=== PATIENT | female | born 1995 | race Caucasian/White ===

== ENCOUNTER 2017-03-10 08:33 | Emergency (ER) | payer OTHER ==
[2017-03-10 08:43] VITALS: BP 127/69
[2017-03-10 09:15] LABS: KETONES,URINE (UA) NEGATIVE (NEGATIVE); LEUKOCYTE ESTERASE, URINE TRACE (NEGATIVE); OCCULT BLOOD,URINE LARGE (NEGATIVE); PH,URINE 5.5 PH (5.0-7.5)
[2017-03-10 09:22] LABS: CLARITY,URINE CLOUDY (CLEAR)
[2017-03-10 09:23] LABS: BILIRUBIN,URINE NEGATIVE (NEGATIVE); ICTOTEST,URINE NEGATIVE
[2017-03-10 09:24] LABS: BACTERIA,URINE Moderate /HPF (None Seen); SQUAMOUS EPITHELIAL CELL,UR RARE Squamous (<= Few)
--- NOTE | 2017-03-10 09:44 | ED Physician Documentation ---
PD HPI FEMALE - Stated complaint Stated Complaint: FEMALE /FEVER - Chief complaint Chief Complaint: UTI - History obtained from History obtained from: Patient, Family - History of Present Illness Timing - onset: How many days ago (2) Timing - duration: Days (2) Timing - details: Gradual onset, Still present Associated symptoms: Dysuria, Urinary frequency Similar symptoms before: Diagnosis (UTI) Recently seen: Not recently seen - Additional information Additional information: 21-year-old female developed symptoms of urinary urgency and frequency 2 days ago she began to take some Azo for this and she has had increasing symptoms when he is aware soft. She has developed some chills this morning and last night. She has had some nausea. She has not had vomiting or back pain. Review of Systems Constitutional: reports: Chills, Myalgias. denies: Fever Eyes: denies: Decreased vision Ears: denies: Ear pain Nose: denies: Congestion Throat: denies: Sore throat Respiratory: denies: Cough GI: reports: Nausea. denies: Abdominal Pain, Vomiting : reports: Dysuria, Frequency PD PAST MEDICAL HISTORY - Past Medical History Past Medical History: No - Past Surgical History Past Surgical History: Yes - Present Medications Home Medications: Ambulatory Orders Medication Instructions Recorded Confirmed Sulfamethoxazole/Trimethoprim 1 each PO BID #6 tablet 03/10/17 [Sulfamethoxazole-Tmp Ds Tablet] traZODone [Desyrel] 50 mg ORAL QPM 03/10/17 03/10/17 - Allergies Allergies/Adverse Reactions: Allergies Allergy/AdvReac Type Severity Reaction Status Date / Time No Known Drug Allergies Allergy Verified 03/10/17 08:43 - Social History Does the pt smoke?: Yes Smoking Status: Current every day smoker Does the pt drink ETOH?: Yes Does the pt have substance abuse?: No - Immunizations Immunizations are current?: Yes PD ED PE NORMAL - Vitals Vital signs reviewed: Yes (normal ) - General General: No acute distress, Well developed/nourished - HEENT HEENT: Atraumatic, PERRL - Neck Neck: Supple, no meningeal sign - Respiratory Respiratory: No respiratory distress - Back Back: No CVA TTP, No spinal TTP - Derm Derm: Normal color, Warm and dry, No rash - Extremities Extremities: No deformity, No edema - Neuro Neuro: No motor deficit, No sensory deficit Eye Opening: Spontaneous Motor: Obeys Commands Verbal: Oriented GCS Score: 15 - Psych Psych: Normal mood, Normal affect Results - Vitals Vitals: Vital Signs - 24 hr 03/10/17 08:39 Temperature 36.7 C Heart Rate 88 Respiratory 18 Rate Blood Pressure 127/69 O2 Saturation 100 Oxygen O2 Source Room air - Labs Labs: Laboratory Tests 03/10/17 09:05 Urine Color ORANGE Urine Clarity CLOUDY Urine pH 5.5 Ur Specific [place] 1.015 Urine Protein Urine Glucose (UA) Urine Ketones NEGATIVE Urine Occult Blood LARGE H Urine Nitrite Urine Bilirubin NEGATIVE Urine Urobilinogen Ur Leukocyte Esterase TRACE H Urine RBC 6-10 H Urine WBC >25 H Ur Squamous Epith Cells RARE Squamous Urine Bacteria Moderate H Ur Microscopic Review INDICATED Urine Culture Comments INDICATED PD MEDICAL DECISION MAKING - ED course Complexity details: reviewed results, re-evaluated patient, considered differential, d/w patient, d/w family ED course: 21-year-old female with a urinary tract infection we will put her on some . Departure - Departure Disposition: Home, Self Care Clinical Impression: Urinary tract infection Qualifiers: Urinary tract infection type: acute cystitis Hematuria presence: without hematuria Qualified Code(s): N30.00 - Acute cystitis without hematuria Condition: Stable Instructions: ED UTI Cystitis Female Follow-Up: TIFFANIE Quijano [Provider Group] Prescriptions: Sulfamethoxazole/Trimethoprim [Sulfamethoxazole-Tmp Ds Tablet] 1 each PO BID #6 tablet
== END 2017-03-10 09:49 | disposition home or self-care (01) ==
LOC: ED 08:33
DX: N30.00 Acute cystitis without hematuria (principal); F17.200 Nicotine dependence, unspecified, uncomplicated
CPT/HCPCS: 81001; 81003; 87077; 87086; 99283

== ENCOUNTER 2017-10-23 20:26 | Emergency (ER) | payer OTHER ==
--- NOTE | 2017-10-23 21:39 | ED Physician Documentation ---
PD HPI ANIMAL BITE - Stated complaint Stated Complaint: DOG BITE - Chief complaint Chief Complaint: Laceration - History obtained from History obtained from: Patient - History of Present Illness Location of injury(ies): Right hand (dorsal aspect the worst.) Details of the event: Dog, Pet animal, Immunized, Provoked (patient trying to break up dog fight) Timing - onset: How many minutes ago (30), Today Timing - details: Abrupt onset Worsened by: Moving, Palpating Associated symptoms: Tingling (just distally to one of the punctures, for tingling then in base MCP area of index finger only.). No: Weakness, Numbness Contributing factors: No: Immunocompromised Similar symptoms before: Has not had sx before Recently seen: Not recently seen Review of Systems Constitutional: denies: Fever, Chills Skin: reports: Laceration (s) (several punctures/bite malone on dorsum left hand. ) Neurologic: denies: Focal weakness PD PAST MEDICAL HISTORY - Past Surgical History Past Surgical History: Yes - Present Medications Home Medications: Ambulatory Orders Medication Instructions Recorded Confirmed Sulfamethoxazole/Trimethoprim 1 each PO BID #6 tablet 03/10/17 [Sulfamethoxazole-Tmp Ds Tablet] traZODone [Desyrel] 50 mg ORAL QPM 03/10/17 03/10/17 Amox/Clav 875/125 [Augmentin] 1 each PO BID #10 tablet 10/23/17 Naproxen 375 mg PO BID #20 tablet 10/23/17 Tramadol HCl 50 mg PO Q6H PRN #15 tablet 10/23/17 - Allergies Allergies/Adverse Reactions: Allergies Allergy/AdvReac Type Severity Reaction Status Date / Time No Known Drug Allergies Allergy Verified 03/10/17 08:43 - Social History Does the pt smoke?: Yes Smoking Status: Current every day smoker Does the pt drink ETOH?: Yes Does the pt have substance abuse?: No - Immunizations Immunizations are current?: Yes PD ED PE NORMAL - Vitals Vital signs reviewed: Yes - General General: Alert and oriented X 3, No acute distress, Well developed/nourished - Neck Neck: Supple, no meningeal sign, No adenopathy - Cardiac Cardiac: RRR, No murmur - Derm Derm: Normal color, Warm and dry - Extremities Extremities: Other (dorsum right hand with several puncture wounds, with one slightly larger but only about 1/2 cm and not bleeding, nor FB. ) - Neuro Neuro: Alert and oriented X 3, No motor deficit, No sensory deficit, Normal speech Results - Vitals Vitals: Oxygen O2 Source Room air - Rads (name of study) hand xray Radiology: Prelim report reviewed, EMP read contemporaneously (no fractures nor foriegn bodies. ) PD MEDICAL DECISION MAKING - ED course Complexity details: reviewed results, considered differential (has some pain into forearm with finger movmenet suggestive of tendon injury but can extend fingers against reisstance so not torn. ), d/w patient - Sepsis Event Vital Signs: Oxygen O2 Source Room air Departure - Departure Disposition: 01 Home, Self Care Clinical Impression: Dog bite of right hand Qualifiers: Encounter type: initial encounter Qualified Code(s): S61.451A - Open bite of right hand, initial encounter Condition: Stable Record reviewed to determine appropriate education?: Yes Instructions: ED Bite Dog Follow-Up: TIFFANIE Leighduke Quijano [Provider Group] Prescriptions: Amox/Clav 875/125 [Augmentin] 1 each PO BID #10 tablet Naproxen 375 mg PO BID #20 tablet Tramadol HCl 50 mg PO Q6H PRN #15 tablet PRN Reason: Pain Comments: Light use with the right hand for the next few days to reduce inflammation and pain. Augmentin antibiotic twice daily for 5 days to reduce infection. Naproxen or ibuprofen twice daily for the next week or so to reduce inflammation. Add Tylenol or tramadol if needed for pain. Follow-up with your primary care in 2-3 days. Forms: Activity restrictions Discharge Date/Time: 10/23/17 23:37
[2017-10-23] MEDS ORDERED: AMOX/CLAV 875 MG/125 MG TABLET PO STA (22:10)
[2017-10-23] MEDS ORDERED: traMADol 50 MG TABLET PO STA (22:10)
[2017-10-23] MEDS ORDERED: NAPROXEN 250 MG TABLET PO STA (22:10)
--- NOTE | 2017-10-23 22:42 | XRAY Report ---
Procedure Date: 10/23/2017 Accession Number: [id number] / [id number] Procedure: XR - Hand 3 View RT CPT Code: FULL RESULT: EXAM: RIGHT HAND RADIOGRAPHY EXAM DATE: 10/23/2017 10:28 PM. CLINICAL HISTORY: Dog bite right hand. Multiple lacerations. COMPARISON: None. TECHNIQUE: 3 views. FINDINGS: Bones: Normal. No fractures or bone lesions. Joints: Normal. No subluxations. Soft Tissues: No foreign body seen. No soft tissue swelling. IMPRESSION: No right hand fracture or foreign body seen. RADIA
[2017-10-23 23:11] VITALS: BP 116/78
== END 2017-10-23 23:37 | disposition home or self-care (01) ==
LOC: ED 20:26
DX: S61.451A Open bite of right hand, initial encounter (principal); F17.200 Nicotine dependence, unspecified, uncomplicated; W54.0XXA Bitten by dog, initial encounter; Y93.F9 Activity, other caregiving
CPT/HCPCS: 73130; 99283; A9270

== ENCOUNTER 2018-02-22 13:16 | Emergency (ER) | payer OTHER ==
[2018-02-22 13:20] VITALS: BP 121/79
[2018-02-22] MEDS ORDERED: CYCLOBENZAPRINE 10 MG TABLET PO STA (13:28)
[2018-02-22] MEDS ORDERED: HYDROcod/ACETAM 5/325 MG TABLET PO STA (13:28)
[2018-02-22] MEDS ORDERED: MELOXICAM 7.5 MG TABLET PO STA (13:28)
--- NOTE | 2018-02-22 13:30 | ED Physician Documentation ---
History of Present Illness - Stated complaint Stated Complaint: NECK PX - Chief complaint Chief Complaint: Back Pain - History obtained from History obtained from: Patient, Friend - History of Present Illness Timing: Today Pain level max: 10 Pain level now: 10 - Additonal information Additional information: 22-year-old female presents to the emergency department with right neck pain. Worse with movement and better with rest. States started gradually today and is continually worsened and now unable to turn her head. No fevers. Did have a neck injury 2 weeks ago while snowboarding. No numbness or tingling. No loss of bowel or bladder control. No loss of motor function. Has not taken anything for the pain. Denies any possibility of . Review of Systems Constitutional: denies: Fever, Chills Eyes: denies: Decreased vision Ears: denies: Ear pain Nose: denies: Rhinorrhea / runny nose, Congestion Throat: denies: Sore throat Cardiac: denies: Chest pain / pressure Respiratory: denies: Cough GI: denies: Vomiting, Diarrhea : denies: Dysuria, Frequency, Hesitancy, Unable to Void, Incontinent, Now EGA Skin: denies: Rash Musculoskeletal: denies: Back pain Neurologic: denies: Focal weakness, Numbness, Headache PD PAST MEDICAL HISTORY - Past Medical History Past Medical History: No - Past Surgical History Past Surgical History: Yes - Present Medications Home Medications: Ambulatory Orders Medication Instructions Recorded Confirmed Cyclobenzaprine [Flexeril] 10 mg PO TID PRN #20 tablet 02/22/18 Hydrocodone/Acetaminophen 1 - 2 each PO Q6H PRN #14 tablet 02/22/18 [Hydrocodon-Acetaminophen 5-325] Meloxicam [Mobic] 15 mg PO DAILY PRN #20 tablet 02/22/18 - Allergies Allergies/Adverse Reactions: Allergies Allergy/AdvReac Type Severity Reaction Status Date / Time No Known Drug Allergies Allergy Verified 02/22/18 13:20 - Living Situation Living Situation: reports: With family - Social History Does the pt smoke?: Yes Smoking Status: Current every day smoker Does the pt drink ETOH?: Yes Does the pt have substance abuse?: No - Immunizations Immunizations are current?: Yes PD ED PE NORMAL - Vitals Vital signs reviewed: Yes - General General: Alert and oriented X 3, No acute distress, Well developed/nourished - HEENT HEENT: Moist mucous membranes - Neck Neck: No bony TTP, Other (Paracervical muscle spasm, right side, worse with movement and palpation. ) - Cardiac Cardiac: RRR, Strong equal pulses - Respiratory Respiratory: No respiratory distress, Clear bilaterally - Abdomen Abdomen: Normal bowel sounds, Soft, Non tender, Non distended - Derm Derm: Warm and dry - Extremities Extremities: No deformity - Neuro Neuro: Alert and oriented X 3 - Psych Psych: Normal mood, Normal affect Results - Vitals Vitals: Vital Signs - 24 hr 02/22/18 13:18 Temperature 36 C L Heart Rate 92 Respiratory 18 Rate Blood Pressure 121/79 O2 Saturation 99 Oxygen O2 Source Room air PD MEDICAL DECISION MAKING - ED course Complexity details: considered differential, d/w patient ED course: 22-year-old female with right-sided neck spasm. Appears consistent with torticollis. No evidence of meningitis. No evidence of cervical spine injury. No midline tenderness, step-off or deformity. No neurological deficits. We will treat with anti-inflammatories and muscle relaxants and follow-up with her PCP. Patient counseled regarding signs and symptoms for which I believe and urgent re-evaluation would be necessary. Patient with good understanding of and agreement to plan and is comfortable going home at this time This document was made in part using voice recognition software. While efforts are made to proofread this document, sound alike and grammatical errors may occur. Departure - Departure Disposition: 01 Home, Self Care Clinical Impression: Neck muscle spasm Condition: Good Instructions: ED Spasm Neck No Injury Follow-Up: LIZ PITTS MD [Primary Care Provider] - Within 1 week (if not better) Prescriptions: Cyclobenzaprine [Flexeril] 10 mg PO TID PRN #20 tablet PRN Reason: Spasms Hydrocodone/Acetaminophen [Hydrocodon-Acetaminophen 5-325] 1 - 2 each PO Q6H PRN #14 tablet PRN Reason: pain Meloxicam [Mobic] 15 mg PO DAILY PRN #20 tablet PRN Reason: pain Comments: Return if you worsen. Follow-up with your doctor for further care. This should improve over the next 24-48 hours. Continue to gently range your neck to help stretch the muscle Do not drink alcohol or drive while on narcotic pain medicine or flexeril. Note that many narcotic pain relievers also contain tylenol/acetaminophen. Please ensure that your total dose of acetaminophen from all sources does not exceed 3 grams (3000mg) per day. You may constipated on this medication, take a stool softener such as "Colace" twice a day while you are on it. Also recommend a firi-nwf-litrgzz laxative such as senna or MiraLAX any day that you do not have a bowel movement. If you received narcotic pain medication in the emergency department, do not drive or operate machinery for the next 24 hours. Discharge Date/Time: 02/22/18 13:41
== END 2018-02-22 13:41 | disposition home or self-care (01) ==
LOC: ED 13:16
DX: M62.838 Other muscle spasm (principal); F17.200 Nicotine dependence, unspecified, uncomplicated
CPT/HCPCS: 99283; A9270

== ENCOUNTER 2018-09-06 19:54 | Outpatient (CLI) | payer OTHER ==
[2018-09-06] MEDS ORDERED: ONDANSETRON ODT 4 MG TABLET TL PRN (21:01)
[2018-09-06 21:24] LABS: BASOPHILS # (AUTO) 0.1 10^3/uL (0.0-0.1); BASOPHILS % (AUTO) 0.3 %; EOSINOPHILS % (AUTO) 0.2 %; HGB - HEMOGLOBIN 10.9 g/dL (12.0-16.0); LYMPHOCYTES # (AUTO) 2.1 10^3/uL (1.5-3.5); LYMPHOCYTES % (AUTO) 13.4 %; MEAN CORPUSCULAR HEMOGLOBIN 31.1 pg (27.0-31.0); MEAN CORPUSCULAR HGB CONC 33.3 g/dL (32.0-36.0); MEAN CORPUSCULAR VOLUME 93.2 fL (81.0-99.0); MEAN PLATELET VOLUME 10.5 fL (7.9-10.8); MONOCYTES # (AUTO) 0.7 10^3/uL (0.0-1.0); MONOCYTES % (AUTO) 4.8 %; NEUTROPHILS # (AUTO) 12.5 10^3/uL (1.5-6.6); NEUTROPHILS % (AUTO) 80.9 %; PLT - PLATELET COUNT 249 10^3/uL (130-450); RED BLOOD COUNT 3.51 10^6/uL (4.20-5.40); RED CELL DISTRIBUTION WIDTH 12.9 % (12.0-15.0); WHITE BLOOD COUNT 15.4 x10^3/uL (4.8-10.8)
[2018-09-06 21:54] LABS: BILIRUBIN,URINE NEGATIVE (NEGATIVE); GLUCOSE, URINE (UA) NEGATIVE (NEGATIVE); KETONES,URINE (UA) NEGATIVE (NEGATIVE); LEUKOCYTE ESTERASE, URINE NEGATIVE (NEGATIVE); NITRITE,URINE NEGATIVE (NEGATIVE); OCCULT BLOOD,URINE NEGATIVE (NEGATIVE); PH,URINE 7.5 PH (5.0-7.5); PROTEIN,URINE NEGATIVE (NEGATIVE); UROBILINOGEN,URINE 0.2 (NORMAL) E.U./dL (NORMAL)
[2018-09-06 22:02] LABS: BACTERIA,URINE Rare /HPF (None Seen); CLARITY,URINE CLEAR (CLEAR); RBC,URINE None Seen /HPF (0-5); SQUAMOUS EPITHELIAL CELL,UR FEW Squamous (<= Few)
[2018-09-06 22:04] VITALS: BP 110/58
--- NOTE | 2018-09-06 23:26 | Ultrasound Report ---
Reason: threatened pre term labor Procedure Date: 09/06/2018 Accession Number: [id number] / [id number] Procedure: US - OB Limited CPT Code: FULL RESULT: EXAM: LIMITED OBSTETRICAL ULTRASOUND EXAM DATE: 09/06/2018 10:51 PM. CLINICAL HISTORY: Threatened pre term labor. Back pain, cramping. COMPARISON: None. TECHNIQUE: Real-time sonographic evaluation of the fetus performed by the rivet hammer machine operator. Multiple physician relations representative static images were saved for review. Additional transvaginal imaging to more accurately evaluate cervical length/placental position/etc. FINDINGS: Established a due date: 01/18/2019. Estimated gestational age: 20 weeks 6 days. Cervix is long and closed measuring 3.6-3.7 cm. Cervical mucus plugging noted. Placenta is a posterior without evidence of abruption or previa. There is a single intrauterine gestation noted in variable position. Amniotic fluid index measures 21.6 cm, within normal limits. Mean vertical pocket measures 8.6 cm. cardiac activity is noted at 147 bpm. IMPRESSION: 1. Single live intrauterine gestation. 2. Normal SAM. 3. No evidence of abruption or previa. Cervix is closed. RADIA
--- NOTE | 2018-09-06 23:27 | Ultrasound Report ---
Reason: threatened pre term labor Procedure Date: 09/06/2018 Accession Number: [id number] / [id number] Procedure: US - OB Transvaginal CPT Code: FULL RESULT: EXAM: LIMITED OBSTETRICAL ULTRASOUND EXAM DATE: 09/06/2018 10:51 PM. CLINICAL HISTORY: Threatened pre term labor. Back pain, cramping. COMPARISON: None. TECHNIQUE: Real-time sonographic evaluation of the fetus performed by the spray stainer. Multiple enrollment eligibility representative static images were saved for review. Additional transvaginal imaging to more accurately evaluate cervical length/placental position/etc. FINDINGS: Established a due date: 01/18/2019. Estimated gestational age: 20 weeks 6 days. Cervix is long and closed measuring 3.6-3.7 cm. Cervical mucus plugging noted. Placenta is a posterior without evidence of abruption or previa. There is a single intrauterine gestation noted in variable position. Amniotic fluid index measures 21.6 cm, within normal limits. Mean vertical pocket measures 8.6 cm. cardiac activity is noted at 147 bpm. IMPRESSION: 1. Single live intrauterine gestation. 2. Normal SAM. 3. No evidence of abruption or previa. Cervix is closed. RADIA
[2018-09-07 17:13] LABS: TRICHOMONAS VAGINALIS DNA NEGATIVE (NEGATIVE)
[2018-09-07 19:16] LABS: CANDIDA GROUP DNA NEGATIVE (NEGATIVE); CANDIDA KRUSEI DNA NEGATIVE (NEGATIVE); TRICHOMONAS VAGINALIS DNA NEGATIVE (NEGATIVE)
--- NOTE | 2018-09-19 16:24 | PROVIDER PROGRESS NOTE ---
- HPI Chief Complaint: Other (22 yo at 21w6d EGA folowed by outside hospital presents with back pain + FM. No LOF/VB. Has had chronic back pain.) Current : Current EDU 01/18/19 Gestation 20 Weeks and 6 Days 1 Para 0 Vital Signs Temperature 98.8 F 09/06/18 21:10 Heart Rate 76 09/06/18 21:10 Respiratory Rate 18 09/06/18 21:10 Blood Pressure 110/58 L 09/06/18 21:10 O2 Saturation 99 09/06/18 21:10 Temperature 98.8 F 09/06/18 21:10 Heart Rate 76 09/06/18 21:10 Respiratory Rate 18 09/06/18 21:10 Blood Pressure 110/58 L 09/06/18 21:10 O2 Saturation 99 09/06/18 21:10 - Procedures OB Procedure Performed: Other Findings: UA wn Negative FFN GCCT neg Vaginitis panel negative CBC wnl for - Plan Plan: FFN negative- no evidence of labor UA negative; low suspicion for UTI/pyelonephritis GCCT/vaginitis negative CBC wnl for Reviewed etiology of back pain concerning in Low concern for labor, infectious etiology FHT wnl Reviewed that cyclobenzaprine is Cat B in Likely MSK in nature Recommend excercises to combat related muscle spasma Refer to ED for continued issues with back pain
== END 2018-09-06 23:21 | disposition home or self-care (01) ==
LOC: WFO 19:54 → FBP 19:55 → WFO 23:21
PROVIDERS: ATTEND Obstetrics & Gynecology
DX: O26.892 Other specified pregnancy related conditions, second trimester (principal); M62.830 Muscle spasm of back; Z3A.21 21 weeks gestation of pregnancy
CPT/HCPCS: 76815; 76817; 81001; 82731; 85025; 87086; 87491; 87591; 87661; 87801

== ENCOUNTER 2018-09-06 23:25 | Emergency (ER) | payer OTHER ==
[2018-09-06 23:35] VITALS: BP 117/73
--- NOTE | 2018-09-07 01:02 | ED Physician Documentation ---
PD HPI BACK PAIN - Stated complaint Stated Complaint: BACK PX - Chief complaint Chief Complaint: Back Pain - History obtained from History obtained from: Patient - History of Present Illness Timing - onset: Enter time (04:00), Today Timing - details: Abrupt onset Pain level now: 6 Location: Lower, Right Quality: Pain Associated symptoms: No: Fever, Weakness, Numbness, Incontinent of urine, Unable to urinate, Hematuria, Incontinent of stool Improves with: Nothing Worsened by: Movement Similar symptoms before: Has not had sx before Recently seen: Not recently seen - Additional information Additional information: c/o right LBP since 4AM waking her from sleep. pain waxing and waning, no obvious exacerbating or ameliorating factors except some component of worsening with movement. primagravida, approximately 20 weeks , cleared by wine manager with reassuring US before being sent to ED Review of Systems Constitutional: reports: Reviewed and negative Cardiac: reports: Reviewed and negative Respiratory: reports: Reviewed and negative GI: reports: Reviewed and negative : reports: Now EGA. denies: Dysuria, Frequency, Hematuria, Vaginal bleeding Musculoskeletal: reports: Back pain PD PAST MEDICAL HISTORY - Past Medical History Past Medical History: No Cardiovascular: None Respiratory: None Neuro: None Endocrine/Autoimmune: None GI: None CHUCKING MACHINE SET UP OPERATOR TOOL: None : None HEENT: None Psych: None Musculoskeletal: None Derm: None - Past Surgical History Past Surgical History: Yes - Present Medications Home Medications: Ambulatory Orders Medication Instructions Recorded Confirmed Hydrocodone/Acetaminophen 1 each PO Q6H PRN #14 tablet 09/07/18 [Hydrocodon-Acetaminophen 5-325] - Allergies Allergies/Adverse Reactions: Allergies Allergy/AdvReac Type Severity Reaction Status Date / Time No Known Drug Allergies Allergy Verified 09/06/18 23:32 - Social History Does the pt smoke?: No Smoking Status: Former smoker Does the pt drink ETOH?: No Does the pt have substance abuse?: No - Immunizations Immunizations are current?: Yes - POLST Patient has POLST: No PD ED PE NORMAL - Vitals Vital signs reviewed: Yes - General General: Alert and oriented X 3, No acute distress, Well developed/nourished - Neck Neck: Supple, no meningeal sign - Cardiac Cardiac: RRR, No murmur - Respiratory Respiratory: No respiratory distress, Clear bilaterally - Abdomen Abdomen: Soft, Non tender, Other (appropriately distended for EDC) - Back Back: No CVA TTP, No spinal TTP - Derm Derm: Normal color, Warm and dry, No rash - Extremities Extremities: No edema Results - Vitals Vitals: Oxygen O2 Source Room air PD MEDICAL DECISION MAKING - ED course Complexity details: reviewed results, re-evaluated patient, considered differential, d/w patient ED course: reviewed test results (US, blood tests, and UA were all performed immediately before she was registered for ED with reassuring results). mild leukocytosis and mild anemia, both could be due to (or contributed to by) . nontender exam. pain waxes and wanes visibly during H+P. I suspect renal colic, but she is too comfortable at this time for radiation of CT to outweigh benefits (which would likely amount to diagnosis alone, as proceduralization would likely be unnecessary as long as pain is controlled and no signs of infection develop); the risk/benefit of CT could be reappraised should symptoms worsen, and I emphasized this to patient. biliary colic seems less likely given location of pain, and US could be considered if symptoms worsen (again, if gallstones were found, she would still be d/c provided symptoms controlled, no fever, and unremarkable lab tests). appendicitis unlikely given lack of tenderness on exam. location can shift during , but the distinct waxing and waning nature of the pain, with completely pain-free intervals, makes this diagnosis unlikely. I again was clear with patient the need for further evaluation, including returning to ED, if worse or fever develops, as restudy and/or new study (such as CT or MRI) might be indicated. Departure - Departure Disposition: 01 Home, Self Care Clinical Impression: Back pain Qualifiers: Back pain location: low back pain Chronicity: acute Back pain laterality: right Sciatica presence: without sciatica Qualified Code(s): M54.5 - Low back pain Condition: Good Health Concerns: back pain Plan of Treatment: rest, analgesic as prescribed, return if worse, follow up with PCP Care Goals: pain control Assessment: see diagnosis Instructions: NARCOTIC, Oral, ED Neck Back Pain General Prescriptions: Hydrocodone/Acetaminophen [Hydrocodon-Acetaminophen 5-325] 1 each PO Q6H PRN #14 tablet PRN Reason: pain Discharge Date/Time: 09/07/18 01:49
[2018-09-07] MEDS ORDERED: HYDROcod/ACET 5/325 Prepack 4 PO STA (01:26)
== END 2018-09-07 01:49 | disposition home or self-care (01) ==
LOC: ED 23:25
DX: O26.892 Other specified pregnancy related conditions, second trimester (principal); M54.5 Low back pain; Z3A.20 20 weeks gestation of pregnancy; Z20.2 Contact with and (suspected) exposure to infections with a predominantly sexual mode of transmission; Z87.891 Personal history of nicotine dependence
CPT/HCPCS: 76815; 76817; 81001; 82731; 85025; 87481; 87491; 87591; 87661; 87801; 99283; Q0162

== ENCOUNTER 2019-02-21 11:24 | Emergency (ER) | payer OTHER ==
[2019-02-21 11:32] VITALS: BP 113/69
[2019-02-21] MEDS ORDERED: DEXAMETHASONE 10 MG/ML VIAL PO STA (12:38)
[2019-02-21] MEDS ORDERED: CHERRY SYRUP 10 ML UDC PO ONE (12:38)
--- NOTE | 2019-02-21 12:43 | ED Physician Documentation ---
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 She is sees white on her tonsils and has come into the emergency department for evaluation because she has had strep a number of times previously. Review of Systems Constitutional: reports: Myalgias. denies: Fever Eyes: denies: Decreased vision Ears: denies: Ear pain Nose: reports: Rhinorrhea / runny nose, Congestion Throat: reports: Sore throat Cardiac: denies: Chest pain / pressure, Palpitations Respiratory: reports: Cough (Mild). denies: Dyspnea GI: denies: Abdominal Pain, Nausea, Vomiting : denies: Dysuria, Frequency PD PAST MEDICAL HISTORY - Past Medical History Cardiovascular: None Respiratory: None Neuro: None Endocrine/Autoimmune: None GI: None ORCHESTRATOR: None : None HEENT: None Psych: None Musculoskeletal: None Derm: None - Past Surgical History Past Surgical History: Yes - Present Medications Home Medications: Ambulatory Orders Medication Instructions Recorded Confirmed Hydrocodone/Acetaminophen 1 each PO Q6H PRN #14 tablet 09/07/18 [Hydrocodon-Acetaminophen 5-325] Azithromycin [Zithromax] 250 mg PO DAILY #6 tablet 02/21/19 - Allergies Allergies/Adverse Reactions: Allergies Allergy/AdvReac Type Severity Reaction Status Date / Time No Known Drug Allergies Allergy Verified 02/21/19 11:32 - Social History Does the pt smoke?: No Smoking Status: Former smoker Does the pt drink ETOH?: No Does the pt have substance abuse?: No - Immunizations Immunizations are current?: Yes - POLST Patient has POLST: No PD ED PE NORMAL - Vitals Vital signs reviewed: Yes (Normal) - General General: Alert and oriented X 3, No acute distress, Well developed/nourished - HEENT HEENT: Atraumatic, PERRL, EOMI, Ears normal, Other (The pharynx is with 1+ tonsils bilaterally that are cryptic and exudative worse on the right than the left.) - Neck Neck: Supple, no meningeal sign, No bony TTP - Cardiac Cardiac: RRR, No murmur - Respiratory Respiratory: No respiratory distress, Clear bilaterally - Abdomen Abdomen: Soft, Non tender - Derm Derm: Normal color, Warm and dry, No rash - Extremities Extremities: No deformity, No edema - Neuro Neuro: No motor deficit, No sensory deficit, Normal speech Eye Opening: Spontaneous Motor: Obeys Commands Verbal: Oriented GCS Score: 15 - Psych Psych: Normal mood, Normal affect Results - Vitals Vitals: Vital Signs - 24 hr 02/21/19 11:30 Temperature 37.0 C Heart Rate 86 Respiratory 16 Rate Blood Pressure 113/69 O2 Saturation 100 Oxygen O2 Source Room air - Labs Labs: Laboratory Tests 02/21/19 11:35 Group A Strep Rapid Negative PD MEDICAL DECISION MAKING - ED course Complexity details: reviewed old records, reviewed results, considered differential, d/w patient, d/w family ED course: 23-year-old female with a sore throat has a negative rapid strep screen she has a history of tonsillitis previously she has had this spontaneously resolve and she has had strep a number of times. She states that usually when she starts on the antibiotic she gets better right away. 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 She is administered dexamethasone here in the emergency department we will place her on a short course of azithromycin and expect improvement. Departure - Departure Disposition: 01 Home, Self Care Clinical Impression: Tonsillitis Condition: Stable Instructions: ED Tonsillitis Follow-Up: TIFFANIE Quijano [Provider Group] Prescriptions: Azithromycin [Zithromax] 250 mg PO DAILY #6 tablet
== END 2019-02-21 12:57 | disposition home or self-care (01) ==
LOC: ED 11:24
DX: J03.90 Acute tonsillitis, unspecified (principal); Z87.891 Personal history of nicotine dependence
CPT/HCPCS: 87070; 87430; 99283; 99284; A9270